=== PATIENT | male | born 1980 | race Caucasian/White ===

== ENCOUNTER 2018-10-20 23:22 | Emergency (ER) | payer OTHER ==
[~2018-10-20] VITALS: Ht 167.6 cm; Wt 110.7 kg
[2018-10-20] MEDS ORDERED: OMEPRAZOLE20 MG PO (23:40)
[2018-10-20] MEDS ORDERED: LISINOPRIL-HCT1 EAC1 PO (23:40)
--- NOTE | 2018-10-21 14:35 | EKG ---
[facility] [address] [facility] [place], [place] [address] Signed Sinus tachycardia Otherwise normal ECG No previous ECGs available Confirmed by LIZZIE DUNN MD ([id number]) on 10/21/2018 2:35:33 PM Electronically Signed By: LIZZIE DUNN MD 10/21/18 1435 PATIENT NAME: RADHA AMIN YADIRA Electrocardiogram DATE OF : 82 PHYSICIAN: LIZZIE DUNN MD REPORT #: [id number] REPORT IS CONFIDENTIAL AND NOT TO BE RELEASED WITHOUT AUTHORIZATION
== END 2018-10-21 02:33 | disposition home or self-care (01) ==
LOC: ED 23:22
DX: E86.0 Dehydration (principal); K21.9 Gastro-esophageal reflux disease without esophagitis; I10 Essential (primary) hypertension; Z90.49 Acquired absence of other specified parts of digestive tract; Z79.899 Other long term (current) drug therapy
CPT/HCPCS: 80053; 81001; 83690; 85025; 93005; 93010; 96361; 96374; 99284-25; J2405; J7030

== ENCOUNTER 2019-08-29 01:19 | Emergency (ER) | payer OTHER ==
[~2019-08-29] VITALS: Ht 162.6 cm; Wt 99.8 kg
--- OUTSIDE RECORDS SUMMARY | ~2019-08-29 | XMS | Clinical Summary ---
Demographics + + + | Address | [address] | | | [place] [address] | + + + | Home Phone | | + + + | Preferred Language | Unknown | + + + | Marital Status | Single | + + + | Scientology Affiliation | Unknown | + + + | Race | Unknown | + + + | Ethnic Group | Other Race | + + + Author + + + | Author | [facility] | + + + | Organization | [facility] | + + + | Address | Unknown | + + + | Phone | Unavailable | + + + Care Team Providers + +------+ + | Care Car Wash Manager Name | Role | Phone | + +------+ + PCP | Unavailable | + +------+ + Source Comments BESS is fully live on both [facility] Ambulatory and [facility] InPatient.[facility] Allergies Not on File Medications Not on file Active Problems Not on file Social History + +-------+ +--------+------+ | Tobacco [...] recent travel history available. | + + Last Filed Vital Signs Not on file Plan of Treatment Not on file Results Not on filefrom Last 3 Months Insurance + +--------+ +--------+ + +------+ | Payer | Benefi | Subscriber | Effect | Phone | Address | Type | | | t Plan | ID | myra | | | | | | / | | Dates | | | | | | Group | | | | | | + +--------+ +--------+ + +------+ | BLUE CROSS BLUE | HMA/RG | [id number] | 11/11/19 | [phone] | [address] | PPO | | SHIELD | A | x | 18-Pre | 8 | [id number] | | | | | | sent | | [place], | | | | | | | | [place] | | | | | | | | [address] | | + +--------+ +--------+ + +------+ + +--------+ +--------+ + + | Guarantor Name | Accoun | Relation to | Date | Phone | Billing Address | | | t Type | Patient | of | | | | | | | | | | + +--------+ +--------+ + + | Naveed Rmairez | Person | Self | [birth year] | [address] | | | vanessa/Pablo | | 1980 | [phone] | [place] [address] | | | sandy | | | 7 (Home) | | | | | | | [phone] | | | | | | | 7 (Work) | | + +--------+ +--------+ + +"
--- OUTSIDE RECORDS SUMMARY | ~2019-08-29 | XMS | Clinical Summary ---
Demographics + + + | Address | [place] [address] | | | [place] [address] | + + + | Preferred Language | Unknown | + + + | Marital Status | Unknown | + + + | Denominational Affiliation | 1077 | + + + | Race | Unknown | + + + | Ethnic Group | Unknown | + + + Author + + + | Author | [facility] | | | and [place] | + + + | Organization | [facility] | | | and [place] | + + + | Address | Unknown | + + + | Phone | Unavailable | + + + Support + + +---------+ + | Name | Relationship | Address | Phone | + + +---------+ + | Nelson Baig | ECON | Unknown | | | James | | | | + + +---------+ + Care Team Providers + +------+ + | Care Director Veterinary Name | Role | Phone | + +------+ + PCP | Unavailable | + +------+ + Allergies Not on File Medications Not on [...] Signs Not on file Plan of Treatment + + + + + | Health Maintenance | Due Date | Last Done | Comments | + + + + + | Vaccine: | | | | | Dtap/Tdap/Td (1 - | 0 | | | | Tdap) | | | | + + + + + | Vaccine: Influenza | | | | | (#1) | 9 | | | + + + + + Results Not on filefrom Last 3 Months"
--- OUTSIDE RECORDS SUMMARY | ~2019-08-29 | XMS | Encounter Summary ---
Demographics + + + | Address | [address] | | | [place] [address] | + + + | Home Phone | | + + + | Preferred Language | Unknown | + + + | Marital Status | Single | + + + | Shinto Affiliation | Unknown | + + + | Race | Unknown | + + + | Ethnic Group | Other Race | + + + Author + + + | Author | [facility] | + + + | Organization | [facility] | + + + | Address | Unknown | + + + | Phone | Unavailable | + + + Care Team Providers + +------+ + | Care Front Maker Name | Role | Phone | + +------+ + PCP | Unavailable | + +------+ + Encounter Details +--------+ + + + + | Date | Type | Department | Care Team | Description | +--------+ + + + + | 11/30/ | Lab | Dermatopathology | Otoniel Lyons V, | | | 2017 | Requisition | [address] | [place] | | | | | Mailcode: [id number] | Clinic Dermatology | | | | | [facility] | [address] | | | | | and Healing, | [place] | | | | | [facility] | [id number] | | | | | Floor [place], [place] | | | | | | [address] | | | | | | [phone] | | | +--------+ + + + [...] | + +--------+ + + + | DERM PATHOLOGY | Routin | 11/29/2017 | Neoplasm of | Results for this | | | e | | uncertain behavior | procedure are in the | | | | | of skin | results section. | + +--------+ + + + documented in this encounter Results DERM PATHOLOGY (11/29/2017) + + + + + + | Component | Value | Ref Range | Performed | Pathologist | | | | | At | Signature | + + + + + + | Clinical | 9 x 8 mm erythematous | | [facility] | | | History | telangiectatic centrally | | DERMATOPATH | | | | ulcerated papule; r/o | | OLOGY | | | | BCC. | | | | + + + + + + | Final | BASAL CELL CARCINOMA, | | [facility] | Electronically | | Pathologic | NODULAR.NOTE: The basal | | DERMATOPATH | signed by Javier | | Diagnosis | cell carcinoma extends | | OLOGY | P MD Myles on | | | to the specimen | | | 12/01/2017 at | | | base.KPW: dm12/01/17 | | | 6:02 PM | | |KPW: dm | | | | | |12/01/17 | | | | + + + + + + | Gross | Received in formalin is | | [facility] | | | Description | a specimen labeled with | | DERMATOPATH | | | | the patient's name:A: | | OLOGY | | | | Specimen is labeled "R | | | | | | nasal tip" and consists | | | | | | of an irregular shave of | | | | | | crusted scaly papular | | | | | | qcwwp-qzjwp-odqgw skin, | | | | | | 10 x 8 x 2 mm. The | | | | | | surgical margin is inked | | | | | | blue; the tissue is | | | | | | trisected, and entirely | | | | | | submitted in cassette | | | | | | A1. | | | | + + + + + + | Microscopic | There are aggregates of | | [facility] | | | | cells with | | DERMATOPATH | | | Description | hyperchromatic nuclei, | | OLOGY | | | | scant cytoplasm and | | | | | | palisading of the | | | | | | peripheral nuclei. | | | | + + + + + + + + | Specimen | + + | Biopsy | + + + + + + + | Performing | Address | City/State/Zipcode | Phone Number | | Organization | | | | + + + + + | [facility] | Mailcode CH5D, [address] | [place] [address] | | | DERMATOPATHOLOGY | [address] | | | + + + + + documented in this encounter Visit Diagnoses + + | Diagnosis | + + | Neoplasm of uncertain behavior of skin | + + documented in this encounter
--- OUTSIDE RECORDS SUMMARY | ~2019-08-29 | XMS | Encounter Summary ---
Demographics + + + | Address | [address] [place] [address] | | | [place] [address] | + + + | Preferred Language | Unknown | + + + | Marital Status | Unknown | + + + | Worship Affiliation | 1077 | + + + | Race | Unknown | + + + | Ethnic Group | Unknown | + + + Author + + + | Author | [facility] | | | and [place] | + + + | Organization | [facility] | | | and [place] [...] Team Providers + +------+ + | Care High School Special Education Teacher Name | Role | Phone | + +------+ + PCP | Unavailable | + +------+ + Encounter Details +--------+ + + + + | Date | Type | Department | Care Team | Description | +--------+ + + + + | 11/24/ | [facility] | [facility] | Sam Enciso | | | 2006 | Encounter | MED CTR SLEEP | MD Jorgito [address] [place] [address] | | | | | [address] [place] | [facility] | | | | | [place] | [place] [address] | | | | | [address] | [phone] | | | | | [phone] | | | +--------+ + + + [...]
--- OUTSIDE RECORDS SUMMARY | ~2019-08-29 | XMS | Encounter Summary ---
Demographics + + + | Address | [place] [address] | | | [place] [address] | + + + | Preferred Language | Unknown | + + + | Marital Status | Unknown | + + + | Pentecostal Affiliation | 1077 | + + + | Race | Unknown | + + + | Ethnic Group | Unknown | + + + Author + + + | Author | [facility] | | | and [place] | + + + | Organization | [facility] | | | and [place] | [...] Team Providers + +------+ + | Care Librarian Specialist Name | Role | Phone | + +------+ + PCP | Unavailable | + +------+ + Encounter Details +--------+ + + + + | Date | Type | Department | Care Team | Description | +--------+ + + + + | 12/14/ | Hospital | [facility] | Sam Enciso | | | 1999 | Encounter | MED CTR SLEEP | MD Jorgito [address] [place] [address] | | | | | [address] [place] | [place] | | | | | [place] | [place] [address] | | | | | [address] | [phone] | | | | | [phone] | | | +--------+ + + + [...]
--- OUTSIDE RECORDS SUMMARY | ~2019-08-29 | XMS | Encounter Summary ---
Demographics + + + | Address | [place] [address] | | | [place] [address] | + + + | Preferred Language | Unknown | + + + | Marital Status | Unknown | + + + | Uatsdin Affiliation | 1077 | + + + | Race | Unknown | + + + | Ethnic Group | Unknown | + + + Author + + + | Author | [facility] | | | and [place] | + + + | Organization | [facility] | | | and [place] | [...] Team Providers + +------+ + | Care Tonsorial Artist Name | Role | Phone | + +------+ + PCP | Unavailable | + +------+ + Encounter Details +--------+ + + + + | Date | Type | Department | Care Team | Description | +--------+ + + + + | 12/14/ | Hospital | [facility] | Sam Enciso | | | 1999 | Encounter | MED CTR SLEEP | MD Jorgito [address] [place] [address] | | | | | [address] [place] | [place] [facility] | | | | | [place] | [place] [address] | | | | | [address] | [phone] | | | | | [phone] | | | +--------+ + + + [...]
--- OUTSIDE RECORDS SUMMARY | ~2019-08-29 | XMS | Encounter Summary ---
Demographics + + + | Address | [address] | | | [place] [address] | + + + | Home Phone | | + + + | Preferred Language | Unknown | + + + | Marital Status | Single | + + + | Yazdanism Affiliation | Unknown | + + + | Race | Unknown | + + + | Ethnic Group | Other Race | + + + Author + + + | Author | [facility] | + + + | Organization | [facility] | + + + | Address | Unknown | + + + | Phone | Unavailable | + + + Care Team Providers + +------+ + | Care Contracts Director Name | Role | Phone | + [...] Clinic Dermatology | | | | | [facility] | [address] | | | | | and Healing, | [place] | | | | | [facility] | [id number] | | | | | Floor [place], [place] | | | | | | [address] | | | | | | [phone] | | | +--------+ + + + [...] papular | | | | | | nxgws-ogdyc-gpziy skin, | | | | | | [...] [facility] | Mailcode CH5D, [address] | [place] [address] | | | DERMATOPATHOLOGY | [address] | | | + + + + + documented in this encounter Visit Diagnoses + + | Diagnosis | + + | Neoplasm of uncertain behavior of skin | + + documented in this encounter
--- OUTSIDE RECORDS SUMMARY | ~2019-08-29 | XMS | Clinical Summary ---
Demographics + + + | Address | [address] | | | [place] [address] | + + + | Home Phone | | + + + | Preferred Language | Unknown | + + + | Marital Status | Single | + + + | Jain Affiliation | Unknown | + + + | Race | Unknown | + + + | Ethnic Group | Other Race | + + + Author + + + | Author | [facility] | + + + | Organization | [facility] | + + + | Address | Unknown | + + + | Phone | Unavailable | + + + Care Team Providers + +------+ + | Care Computer Programming Manager Name | Role | Phone | + +------+ + PCP | Unavailable | + +------+ + Source Comments BESS is fully live on both [facility] Ambulatory and [facility] InPatient.[facility] Allergies Not on File Medications Not [...] | HMA/RG | [phone] | 11/11/19 | [phone] | [address] | PPO | | SHIELD | A | x | 18-Pre | 8 | [phone] | | | | | | sent | | [place], | | | | | | | | [place] | | | | | | | | [address] | | + +--------+ +--------+ + +------+ [...] | | vanessa/Pablo | | 1980 | [phone] | [place] [address] | | | sandy | | | 7 (Home) | | | | | | | [phone] | | | | | | | 7 (Work) | | + +--------+ +--------+ + +"
--- OUTSIDE RECORDS SUMMARY | ~2019-08-29 | XMS | Encounter Summary ---
Demographics + + + | Address | [place] [address] | | | [place] [address] | + + + | Preferred Language | Unknown | + + + | Marital Status | Unknown | + + + | Zoroastrianism Affiliation | 1077 | + + + | Race | Unknown | + + + | Ethnic Group | Unknown | + + + Author + + + | Author | [facility] | | | and [place] | + + + | Organization | [facility] | | | and [place] [...] Team Providers + +------+ + | Care Stripper Black And White Name | Role | Phone | + +------+ + PCP | Unavailable | + +------+ + Encounter Details +--------+ + + + + | Date | Type | Department | Care Team | Description | +--------+ + + + + | [facility]24/ [facility] | Sam Enciso | | | 2006 | Encounter | MED CTR SLEEP | MD Jorgito [address] [place] [address] | | | | | [address] [place] | [facility] | | | | | [place] | [place] [address] | | | | | [address] | [phone] | | | | | [phone] | | | +--------+ + + + [...]
--- OUTSIDE RECORDS SUMMARY | ~2019-08-29 | XMS | Clinical Summary ---
Demographics + + + | Address | [place] [address] | | | [place] [address] | + + + | Preferred Language | Unknown | + + + | Marital Status | Unknown | + + + | Jehovah'S Witness Affiliation | 1077 | + + + | Race | Unknown | + + + | Ethnic Group | Unknown | + + + Author + + + | Author | [facility] | | | and [place] | + + + | Organization | [facility] | | | and [place] [...] Team Providers + +------+ + | Care Roll Threader Operator Name | Role | Phone | + [...]
[~2019-08-29 01:19] MED LIST: CENTRUM MEN'S1 EACH PO; FISH OIL 1,0001 EAC3 PO; IRON325 M1 PO; LISINOPRIL-HCT1 EAC1 PO; OMEPRAZOLE20 MG PO; PANTOPRAZOLE SO40 MG PO; VITAMIN C500 M1 PO; VITAMIN D2000 UNIT PO; XANAX0.5 MG PO
[2019-08-29] MEDS ORDERED: OMEPRAZOLE20 MG PO (01:32)
[2019-08-29] MEDS ORDERED: BUSPIRONE HCL10 MG PO (01:32)
[2019-08-29] MEDS ORDERED: ONDANSETRON ODT4 MG PO (01:32)
== END 2019-08-29 05:42 ==
LOC: ED 01:19
DX: R20.2 Paresthesia of skin (principal); I10 Essential (primary) hypertension; K21.9 Gastro-esophageal reflux disease without esophagitis; Z91.040 Latex allergy status; Z88.8 Allergy status to other drugs, medicaments and biological substances; Z79.899 Other long term (current) drug therapy
CPT/HCPCS: 80053; 81001; 83690; 84484; 85025; 99284

== ENCOUNTER 2020-01-23 13:24 | Emergency (ER) | payer OTHER ==
[~2020-01-23] VITALS: Ht 162.6 cm; Wt 145.2 kg
[~2020-01-23 13:24] MED LIST changes: +BUSPIRONE HCL10 MG PO; +ONDANSETRON ODT4 MG PO
--- OUTSIDE RECORDS SUMMARY | 2020-01-23 13:28 | XMS ---
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 Guidelines Source: [facility] Guidelines Date: 09/01/2019 Care Coordination: Receives mental health services with [facility].\T\nbsp; Please contact [facility] for any mental health concerns.\T\nbsp; [place]: [phone]\ T\nbsp; [place]: [phone]. E.D. VISIT COUNT (12 MO.) 2 [facility] TOTAL 2 NOTE: Visits indicate total known visits. ED/UCC VISIT TRACKING (12 MO.) 01/23/2020 13:25 [facility] [place] [place] TYPE: Emergency COMPLAINT: - CHEST PRESSURE 08/29/2019 01:20 [facility] [place] [place] TYPE: Emergency COMPLAINT: - PANIC ATTACK/BLOOD PRESSURE CONCERN DIAGNOSES: - Latex allergy status - Other prison (current) drug therapy - Paresthesia of skin - Gastro-esophageal reflux disease without esophagitis - Allergy status to other drugs, medicaments and biological sub - Essential (primary) hypertension INPATIENT VISIT TRACKING (12 MO.) No inpatient visits to display in this time frame [email or web address]
[2020-01-23] MEDS ORDERED: DOXEPIN HCL10 MG PO (13:33)
--- NOTE | 2020-01-24 12:45 | EKG ---
[facility] [address] [facility] [place] [address] Signed Normal sinus rhythm Normal ECG When compared with ECG of 21-OCT-2018 00:18, No significant change was found Confirmed by VENUS AJ MD ([id number]) on 01/24/2020 12:45:05 PM Electronically Signed By: VENUS AJ MD 01/24/20 1245 PATIENT NAME: RADHA AMIN YADIRA Electrocardiogram DATE OF : 82 PHYSICIAN: VENUS AJ MD REPORT #: [id number] REPORT IS CONFIDENTIAL AND NOT TO BE RELEASED WITHOUT AUTHORIZATION
== END 2020-01-23 14:58 | disposition home or self-care (01) ==
LOC: ED 13:24
DX: F41.9 Anxiety disorder, unspecified (principal); I10 Essential (primary) hypertension; R07.89 Other chest pain; K21.9 Gastro-esophageal reflux disease without esophagitis; Z91.040 Latex allergy status; Z79.899 Other long term (current) drug therapy
CPT/HCPCS: 71045; 80053; 83735; 84484; 85025; 93005; 93010; 99285-25

== ENCOUNTER 2020-02-08 15:44 | Emergency (ER) | payer OTHER ==
[~2020-02-08] VITALS: Ht 162.6 cm; Wt 145.2 kg
--- OUTSIDE RECORDS SUMMARY | ~2020-02-08 | XMS | Encounter Summary ---
Demographics + + + | Address | [address] | | | [place] [address] | + + + | Home Phone | | + + + | Preferred Language | Unknown | + + + | Marital Status | Single | + + + | Sabianist Affiliation | 1077 | + + + | Race | Unknown | + + + | Ethnic Group | Unknown | + + + Author + + + | Author | [facility] | | | and [place] | + + + | Organization | [facility] | | | and [place] | + + + | Address | Unknown | + + + | Phone | Unavailable | + + + Support + + +---------+ + | Name | Relationship | Address | Phone | + + +---------+ + | RADHA Ramirez | ECON | Unknown | | + + +---------+ + Care Team Providers + +------+ + | Care Machine Tool Designer Name | Role | Phone | + +------+ + PCP | Unavailable | + +------+ + Encounter Details +--------+ + + + + | Date | Type | Department | Care Team | Description | +--------+ + + + + | 12/14/ | Hospital | [facility] | Sam Enciso | | | 1999 | Encounter | MED CTR SLEEP | MD Jorgito [address] | | | | | CENTER [address] | [facility] | | | | | [place] | [place] [address] | | | | | [address] | [phone] | | | | | [phone] | | | +--------+ + + + + Social History + +-------+ +--------+------+ | Tobacco Use | Types | Packs/Day | Years | Date | | | | | Used | | + +-------+ +--------+------+ | Never Assessed | | | | | + +-------+ +--------+------+ + + + | Sex Assigned at | Date Recorded | | | | + + + | Not on file | | + + + + + + + | Job Start Date | Occupation | Industry | + + + + | Not on file | Not on file | Not on file | + + + + + + + + | Travel History | Travel Start | Travel End | + + + + + + | No recent travel history available. | + + documented as of this encounter Plan of Treatment Not on filedocumented as of this encounter Visit Diagnoses Not on filedocumented in this encounter"
--- OUTSIDE RECORDS SUMMARY | ~2020-02-08 | XMS | Encounter Summary ---
Demographics + + + | Address | [address] | | | [place] [address] | + + + | Home Phone | | + + + | Preferred Language | Unknown | + + + | Marital Status | Single | + + + | Religion Affiliation | 1077 | + + + | Race | Unknown | + + + | Ethnic Group | Unknown | + + + Author + + + | Author | [facility] | | | and [place] | + + + | Organization | [facility] | | | and [place] [...] Team Providers + +------+ + | Care Deputy Jailer Name | Role | Phone | + +------+ + | Kris Barone PCP | | + +------+ + Reason for Visit Auth/Cert +--------+--------+ + + + + | Status | Reason | Specialty | Diagnoses / | Referred By | Referred To | | | | | Procedures | Contact | Contact | +--------+--------+ + + + + | | | | Diagnoses | | [place] | | | | | | | [place], | | | | | Gastroesopha | | [address] | | | | | geal reflux | | [address] | | | | | disease, | | [place], | | | | | esophagitis | | [place] [address] | | | | | presence not | | Phone: | | | | | specified | | [phone] | | | | | 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 | | [phone] | | | | | (HCC) | | | | | | | Chronic | | | | | | | abdominal | | | | | | | pain Failed | | | | | | | conscious | | | | | | | sedation | | | | | | | during | | | | | | | procedure, | | | | | | | subsequent | | | | | | | encounter | | | | | | | Obstructive | | | | | | | sleep apnea | | | | | | | | | | | | | | 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 | | | | | | | without | | | | | | | status | | | | | | | epilepticus, | | | | | | | unspecified | | | | | | | epilepsy | | | | | | | type (HCC) | | | | | | | Procedures | | | | | | | [place] | | | | | | | ESOPHAGOGAST | | | | | | | RODUODENOSCO | | | | | | | PY TRANSORAL | | | | | | | DIAGNOSTIC | | | | | | | [place] EGD | | | | | | | TRANSORAL | | | | | | | BIOPSY | | | | | | | SINGLE/MULTI | | | | | | | PLE [place] | | | | | | | COLONOSCOPY | | | | | | | FLX DX | | | | | | | W/COLLJ SPEC | | | | | | | WHEN PFRMD | | | | | | | [place] | | | | | | | COLONOSCOPY | | | | | | | W/BIOPSY | | | | | | | SINGLE/MULTI | | | | | | | PLE [place] | | | | | | | COLSC FLX | | | | | | | W/RMVL OF | | | | | | | TUMOR POLYP | | | | | | | LESION SNARE | | | | | | | TQ [place] | | | | | | | ANESTHESIA | | | | | | | COMBINED | | | | | | | UPPER&LOWER | | | | | | | GI | | | | | | | ENDOSCOPIC | | | | | | | PX EGD | | | | | | | COLONOSCOPY | | | +--------+--------+ + + + + Encounter Details +--------+ + + + + | Date | Type | Department | Care Team | Description | +--------+ + + + + | 11/28/ | Anesthesia | [facility] | Blaine Barone | | | 2020 | Event | [facility] | MD [address] | | | | | [address] | [address] | | | | | [place] | [place] [address] | | | | | [address] | [phone] | | | | | [phone] | | | +--------+ + + + + Anesthesia Record + + + + + | Procedure Name | Responsible | Anesthesia Start | Anesthesia Stop Time | | | Anesthesiologist | Time | | + + + + + | ANABEL (N/A Kj) | Blaine Talamantes | 11/28/19 0953 | 11/28/19 1034 | | | MD Abisai | | | + + + + + +----+---+ + + | Da | T | Event | Comment | | te | i | | | | | m | | | | | e | | | +----+---+ + + | 02 | 0 | | | | /1 | 9 | | | | 8/ | 5 | | | | 20 | 3 | | | | 20 | | | | +----+---+ + + | | 0 | An Start | Reassessment prior to anesthesia induction/procedure. | | | 9 | | | | | 5 | | | | | 3 | | | +----+---+ + + | | 0 | An Checkout | Pre-use anesthesia machine/equipment checkout. | | | 9 | | | | | 5 | | | | | 4 | | | +----+---+ + + | | 0 | An Start | | | | 9 | Data | | | | 5 | | | | | 4 | | | +----+---+ + + | | 0 | AN | Per surgeon request | | | 9 | Antibiotic | | | | 5 | declined | | | | 5 | | | +----+---+ + + | | 0 | Pre-Procedu | | | | 9 | ral Timeout | | | | 5 | Completed | | | | 5 | | | +----+---+ + + | | 0 | Preoxygenat | | | | 9 | ed | | | | 5 | | | | | 7 | | | +----+---+ + + | | 0 | First | | | | 9 | Inc/Proc St | | | | 5 | | | | | 9 | | | +----+---+ + + | | 0 | An | | | | 9 | Induction | | | | 5 | | | | | 9 | | | +----+---+ + + | | 1 | Breathing | | | | 0 | Spontaneous | | | | 2 | ly | | | | 6 | | | +----+---+ + + | | 1 | an stop | | | | 0 | data | | | | 3 | | | | | 0 | | | +----+---+ + + | | 1 | An Stop | Patient handed off to recovery nurse. | | | 3 | | | | | 4 | | | +----+---+ + + +------+ | Meds | +------+ + + + | Name | Total | + + + | propofol | 80 mg | + + + | propofol | 378 mg | + + + | lidocaine 2% | 60 mg | + + + | lactated ringers (LR) infusion | 1,000 mL | + + + + + | No agents on file. | + + + + | No blood administrations on file. | + + +--------+ + + + | Type | Details | Placement | Removal | +--------+ + + + | Periph | 11/28/19; 826; Right; Forearm; | 11/28/19826 by | 11/28/191107 by | | eral | [id number] catheter system; | Ava Cole RN | Randi Reyes, | | IV | 20 gauge; distraction, | | RN | | | intradermal injection; no longer | | | | | indicated, removed per | | | | | policy/procedure, catheter/device | | | | | intact; 11/28/19; 1108 | | | +--------+ + + + documented in this encounter Social History + +-------+ +--------+------+ | Tobacco Use | Types | Packs/Day | Years | Date | | | | | Used | | + +-------+ +--------+------+ | Never Smoker | | | | | + +-------+ +--------+------+ + +---+---+---+ | Smokeless Tobacco: | | | | | Never Used | | | | + +---+---+---+ + + +---------+ + | Alcohol Use | Drinks/Week | oz/Week | Comments | + + +---------+ + | Never | | | | + + +---------+ + + + + + | Alcohol Habits | Answer | Date Recorded | + + + + | How often do you have a drink containing | Never | 10/10/2019 | | alcohol? | | | + + + + | How many drinks containing alcohol do you | Not asked | | | have on a typical day when you are | | | | drinking? | | | + + + + | How often do you have six or more drinks on | Not asked | | | one occasion? | | | + + + + + + + | Sex Assigned at [...] Visit Diagnoses Not on filedocumented in this encounter Administered Medications + +---------+ +------+------+------+ | Medication Order | MAR | Action | Dose | Rate | Site | | | Action | Date | | | | + +---------+ +------+------+------+ | lactated ringers (LR) infusion | New Bag | 11/28/19 | | | | | at 100 mL/hr, Intravenous, | | 20 10:29 | | | | | CONTINUOUS, Starting 11/28/19 | | AM PST | | | | | at 0830, Pre-op | | | | | | + +---------+ +------+------+------+ + + +--------+-------+---+ | Continued by Anesthesia | 11/28/19 | | | | | | 20 9:53 | | | | | | AM PST | | | | + + +--------+-------+---+ | New Bag | 11/28/19 | 1,000 | 100 | | | | 20 8:28 | mLs | mL/hr | | | | AM PST | | | | + + +--------+-------+---+ +---+---+ | | | +---+---+ + +-------+ +-------+---+---+ | lidocaine (PF) 2% injection | Given | 11/28/19 | 60 mg | | | | Intravenous, PRN, Starting Tue | | 20 9:59 | | | | | 11/28/19 at 0959, Anesthesia | | AM PST | | | | | Intra-op | | | | | | + +-------+ +-------+---+---+ +---+---+ | | | +---+---+ + +---------+ + +-------+---+ | propofol (DIPRIVAN) injection | New Bag | 11/28/19 | 180 | 108 | | | Intravenous, CONTINUOUS PRN, | | 20 9:59 | mcg/kg/m | mL/hr | | | Starting 11/28/19 at 0959, | | AM PST | in | | | | Anesthesia Intra-op | | | | | | + +---------+ + +-------+---+ +---+---+ | | | +---+---+ + +-------+ +-------+---+---+ | propofol (DIPRIVAN) injection | Given | 11/28/19 | 80 mg | | | | Intravenous, PRN, Starting Tue | | 20 9:59 | | | | | 11/28/19 at 0959, Anesthesia | | AM PST | | | | | Intra-op | | | | | | + +-------+ +-------+---+---+ +---+---+ | | | +---+---+ documented in this encounter"
--- OUTSIDE RECORDS SUMMARY | ~2020-02-08 | XMS | Encounter Summary ---
Demographics + + + | Address | [address] | | | [place] [address] | + + + | Home Phone | | + + + | Preferred Language | Unknown | + + + | Marital Status | Single | + + + | Evangelical Affiliation | 1077 | + + + | Race | Unknown | + + + | Ethnic Group | Unknown | + + + Author + + + | Author | [facility] | | | and [place]ol[place] | + + + | Organization | [facility] | | | and [...] Team Providers + +------+ + | Care Production Support Engineer Name | Role | Phone | + +------+ + | Kris Barone | PCP | | + +------+ + Reason for Visit +--------+ + | Reason | Comments | +--------+ + | Other | | +--------+ + Encounter Details +--------+ + + + + | Date | Type | Department | Care Team | Description | +--------+ + + + + | 11/08/ | Telephone | [facility] [place] | [place], | Other | | 2020 | | GASTROENTEROLOGY | [facility] [address] | | | | | [address] [place] | [place] | | | | | [address] [place], [place] | [place], [place] | | | | | [address] | [address] | | | | | [phone] | | | +--------+ + + + [...]
--- OUTSIDE RECORDS SUMMARY | ~2020-02-08 | XMS | Encounter Summary ---
Demographics + + + | Address | [address] | | | [place] [address] | + + + | Home Phone | | + + + | Preferred Language | Unknown | + + + | Marital Status | Single | + + + | Adventist Affiliation | 1077 | + + + | Race | Unknown | + + + | Ethnic Group | Unknown | + + + Author + + + | Author | [facility] | | | and Amolana | + + + | Organization | [facility] | | | and Amolana [...] Team Providers + +------+ + | Care Tearoom Host/Hostess Name | Role | Phone | + [...] | | | esophagitis | | [place] [address] | | | | | presence not | | Phone: | | | | | specified | | [phone] | | | | | 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 | | [phone] | | | | | (HCC) | [...] | | | | | | | [place] | | | | | | | ESOPHAGOGAST | | | | | | | RODUODENOSCO | | | | | | | PY TRANSORAL | | | | | | | DIAGNOSTIC | | | | | | | [place] EGD | | | | | | | TRANSORAL | | | | | | | BIOPSY | | | | | | | SINGLE/MULTI | | | | | | | PLE [place] | | | | | | | COLONOSCOPY | | | | | | | FLX DX | | | | | | | W/COLLJ SPEC | | | | | | | WHEN PFRMD | | | | | | | [place] | | | | | | | COLONOSCOPY | | | | | | | W/BIOPSY | | | | | | | SINGLE/MULTI | | | | | | | PLE [place] | | | | | | | COLSC FLX | | | | | | | W/RMVL OF | | | | | | | TUMOR POLYP | | | | | | | LESION SNARE | | | | | | | TQ [place] | | | | | | | [...] +--------+--------+ + + + + Encounter Details +--------+---------+ + + + | Date | Type | Department | Care Team | Description | +--------+---------+ + + + | 11/28/ | Surgery | [facility] | [facility] | EGD | | 2019 | | [facility] | MD D[address] | | | | [address] | [address] | | | | | [place] | [place] [address] | | | | | [id number] | [phone] | | | | | [phone] | | | +--------+---------+ + + + Social History + +-------+ [...] + + documented as of this encounter Last Filed Vital Signs + + + + + | Vital Sign | Reading | Time Taken | Comments | + + + + + | Blood Pressure | 131/93 | 11/28/2019 11:00 AM | | | | | PST | | + + + + + | Pulse | 92 | 11/28/2019 11:00 AM | | | | | PST | | + + + + + | Temperature | 36.6 C (97.9 F) | 11/28/2019 7:48 AM | | | | | PST | | + + + + + | Respiratory Rate | 15 | 11/28/2019 11:00 AM | | | | | PST | | + + + + + | Oxygen Saturation | 99% | 11/28/2019 11:00 AM | | | | | PST | | + + + + + | Inhaled Oxygen | - | - | | | Concentration | | | | + + + + + | Weight | 100 kg (220 lb 7.4 | 11/28/2019 7:48 AM | | | | oz) | PST | | + + + + + | Height | 162.6 cm (5' 4") | 11/28/2019 7:48 AM | | | | | PST | | + + + + + | Body Mass Index | 37.84 | 11/28/2019 7:48 AM | | | | | PST | | + + + + + documented in this encounter Discharge Instructions Instructions Randi Reyes RN - 11/28/2019 Recovery After Procedural Sedation (Adult) You have been given medicine by vein to make you sleep during your procedure. This may have included both a pain medicine and sleeping medicine. Most of the effects have worn off. But you may still have some drowsiness for the next 6 to 8 hours. Home care Follow these guidelines when you get home: For the next 8 hours, you should be watched by a responsible adult. This person should m baltazar sure your condition is not getting worse. Don't drink any alcoholfor the next [address], operate dangerous machinery,make important business or personal decisions , or sign legal documentsduring the next 24 hours. Note: Your healthcare provider may tell you not to take any medicine by mouth for pain or s leep in the next 4 hours. These medicines may react with the medicines you were given in the hospital. This could cause a much stronger response than usual. Follow-up care Follow up with your healthcare provider if you are not alert and back to your usual level o f activity within 12 hours. When to seek medical advice Call your healthcare provider right away if any of these occur: Drowsiness gets worse Weakness or dizziness gets worse Repeated vomiting You can't be awakened Date Last Reviewed: 07/28/201619990577-0931 [employer]. [address] [place] [address]. All righ ts reserved. This information is not intended as a substitute for professional medical care. Always follow your healthcare professional's instructions. documented in this encounter Medications at Time of Discharge + + + +---------+ + + | Medication | Sig | Dispensed | Refills | Start | End Date | | | | | | Date | | + + + +---------+ + + | ALPRAZolam (XANAX) | Take 0.5 mg by mouth | | 0 | | | | 0.5 mg tablet | 3 times daily as | | | | | | | needed for Anxiety. | | | | | + + + +---------+ + + | amitriptyline | TAKE 1 TABLET BY | | 0 | 11/01/19 | | | (ELAVIL) 10 mg | MOUTH EVERY DAY AT | | | 20 | | | tablet | BEDTIME | | | | | + + + +---------+ + + | cholecalciferol | Take 50 mcg by mouth | | 0 | | | | (EQL VITAMIN D3) 50 | Daily. | | | | | | mcg (2,000 units) | | | | | | | capsule | | | | | | + + + +---------+ + + | Iron-Vitamin C | Take 1 tablet by | | 0 | | | | (VITRON-C) 65-125 MG | mouth Daily. | | | | | | TABS | | | | | | + + + +---------+ + + | | Take 1 tablet by | | 0 | | | | lisinopril-hydrochlo | mouth Daily. | | | | | | rothiazide | | | | | | | (PRINZIDZahraa,ZESTORETIC | | | | | | | ) 20-25 MG per | | | | | | | tablet | | | | | | + + + +---------+ + + | Multiple | Take 1 tablet by | | 0 | | | | Vitamins-Minerals | mouth Daily. | | | | | | (CENTRUM MEN) TABS | | | | | | + + + +---------+ + + | omeprazole | TAKE 1 CAPSULE BY | | 0 | 03/13/20 | | | (PRILOSEC) 20 mg | MOUTH TWICE DAILY | | | 19 | | | TBEC | | | | | | + + + +---------+ + + | ondansetron | Take 4 mg by mouth | | 0 | | | | (ZOFRAN ODT) 4 mg | every 8 hours as | | | | | | disintegrating | needed for Nausea. | | | | | | tablet | | | | | | + + + +---------+ + + | psyllium (KONSYL) | Take 1 packet by | | 0 | | | | 28.3 % PACK | mouth Daily. | | | | | + + + +---------+ + + documented as of this encounter Plan of Treatment Not on filedocumented as of this encounter Procedures + +--------+ + + + | Procedure Name | Priori | Date/Time | Associated Diagnosis | Comments | | | ty | | | | + +--------+ + + + | COLONOSCOPY | | 11/28/2019 | Gastroesophageal | | | | | 9:55 AM | reflux disease, | | | | | PST | esophagitis presence | | | | | | not specified | | | | | | Sedative dependence | | | | | | ([facility]) Chronic | | | | | | abdominal pain | | | | | | Failed conscious | | | | | | sedation during | | | | | | procedure, | | | | | | subsequent encounter | | | | | | Obstructive sleep | | | | | | apnea | | | | | | Nonintractable | | | | | | epilepsy without | | | | | | status epilepticus, | | | | | | unspecified epilepsy | | | | | | type ([facility]) | | + +--------+ + + + | EGD | | 11/28/2019 | Gastroesophageal | | | | | 9:55 AM | reflux disease, | | | | | PST | esophagitis presence | | | | | | not specified | | | | | | Sedative dependence | | | | | | ([facility]) Chronic | | | | | | abdominal pain | | | | | | Failed conscious | | | | | | sedation during | | | | | | procedure, | | | | | | subsequent encounter | | | | | | Obstructive sleep | | | | | | apnea | | | | | | Nonintractable | | | | | | epilepsy without | | | | | | status epilepticus, | | | | | | unspecified epilepsy | | | | | | type (HCC) | | + +--------+ + + + | *TERMED* [place] UPPER GI | Routin | 11/28/2019 | | Results for this | | ENDOSCOPY,EXAM | e | 9:48 AM | | procedure are in the | | | | PST | | results section. | + +--------+ + + + | [place] COLONOSCOPY FLX | Routin | 11/28/2019 | | Results for this | | DX W/COLLJ SPEC WHEN | e | 9:47 AM | | procedure are in the | | PFRMD | | PST | | results section. | + +--------+ + + + | ECG 12 LEAD | STAT | 11/28/2019 | | Results for this | | | | 8:29 AM | | procedure are in the | | | | PST | | results section. | + +--------+ + + + | SURGICAL PATHOLOGY | Routin | 11/28/2019 | | Results for this | | EXAM | e | 12:00 AM | | procedure are in the | | | | PST | | results section. | + +--------+ + + + documented in this encounter Results EGD (11/28/2019 9:48 AM PST) + + | Specimen | + + | | + + + + ----+ | Narrative | Performed At | + + ----+ | [facility] | [facility] | | [facility] CenterstroenterologyPatient Name: Naveed Ramirez | ADOLFO | | NelsonProcedure Date: 11/28/2019 9:48 AMMRN: [id number] | | | Number: [id number] of : 1980Note Status: | | | FinalizedAttending MD: AQUILES RAGLAND , [facility]ERYrocedure Type: | | | Upper GI endoscopyIndications: Epigastric | | | abdominal pain, Abdominal bloatingReferring MD: | | | Kris Barone MD (Referring MD), Sowmya | | | RAYNE Carter (Referring )Medicines: | | | Monitored Anesthesia CareComplications: No | | | immediate complications.Procedure: Pre-Anesthesia Assessment: | | | - Prior to the procedure, a History and Physical was performed, | | | and patient medications and allergies were reviewed. The | | | patient is competent. The risks and benefits of the procedure | | | and the sedation options and risks were discussed with the | | | patient. All questions were answered and informed consent was | | | obtained. Patient identification and proposed procedure were | | | verified by the physician, the nurse and the anesthesiologist | | | in the pre-procedure area in the procedure room. Mental Status | | | Examination: alert and oriented. Airway Examination: normal | | | oropharyngeal airway and neck mobility. Respiratory Examination: clear | | | to auscultation. CV Examination: normal. Prophylactic | | | Antibiotics: The patient does not require prophylactic | | | antibiotics. Prior Anticoagulants: The patient has taken no | | | previous anticoagulant or antiplatelet agents. ASA Grade | | | Assessment: III - A patient with severe systemic disease. After | | | reviewing the risks and benefits, the patient was deemed in | | | satisfactory condition to undergo the procedure. The anesthesia plan | | | was to use monitored anesthesia care (MAC). Immediately prior | | | to administration of medications, the patient was re-assessed | | | for adequacy to receive sedatives. The heart rate, respiratory | | | rate, oxygen saturations, blood pressure, adequacy of pulmonary | | | ventilation, and response to care were monitored throughout | | | the procedure. The physical status of the patient was | | | re-assessed after the procedure. After obtaining informed | | | consent, the endoscope was passed under direct vision. | | | Throughout the procedure, the patient's blood pressure, pulse, | | | and oxygen saturations were monitored continuously. The Endoscope was | | | introduced through the mouth, and advanced to the second part | | | of duodenum. The upper GI endoscopy was accomplished without | | | difficulty. The patient tolerated the procedure well.Estimated | | | Blood Loss: Estimated blood loss: none.Findings: The upper | | | third of the esophagus and middle third of the esophagus were | | | normal. Three tongues of salmon-colored mucosa were present from | | | 35 to 36 cm. No other visible abnormalities were present. The | | | maximum longitudinal extent of these esophageal mucosal changes | | | was 1 cm in length. Biopsies were taken with a cold forceps | | | for histology. Z line at 35cm, top of folds at 36cm, pinch at | | | 38cm. The entire examined stomach was normal. Biopsies were | | | taken with a cold forceps for histology. A 2 cm hiatal | | | hernia was present. Retroflexion in the stomach confirmed the | | | above findings. The duodenal bulb and second portion of the | | | duodenum were normal. Biopsies were taken with a cold forceps | | | for histology.Impression: - Normal upper third of esophagus and | | | middle third of esophagus. 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 Biopsied. - Normal | | | stomach. Biopsied. - 2 cm hiatal hernia. - Normal | | | duodenal bulb and second portion of the duodenum. | | | Biopsied.Recommendation: - Await pathology results. - | | | Resume previous diet. - Follow an antireflux regimen. - | | | Repeat upper endoscopy in 3 years for surveillance based on pathology | | | results. - Return to GI office as previously | | | scheduled.AQUILES RAGLAND MD11/28/2019 10:36:28 AMThis report has | | | been signed electronically.Note Initiated On: 11/28/2019 9:48 AMNumber | | | of Addenda: 0 [facility] | | | - Normal duodenal bulb and second portion of the duodenum. Biopsied. | | |Recommendation: | | | - Await pathology results. | | | - Resume previous diet. | | | - Follow an antireflux regimen. | | | - Repeat upper endoscopy in 3 years for surveillance based on pathology | | | results. | | | - Return to GI office as previously scheduled. | | |AQUILES RAGLAND MD | | |11/28/2019 10:36:28 AM | | |This report has been signed electronically. | | |Note Initiated On: 11/28/2019 9:48 AM | | |Number of Addenda: 0 | | | [facility] | | + + ----+ + +---------+ + + | Performing | Address | City/State/Zipcode | Phone Number | | Organization | | | | + +---------+ + + | [facility] | | | | + +---------+ + + COLONOSCOPY (11/28/2019 9:47 AM PST) + + | Specimen | + + | | + + + + + | Narrative | Performed At | + + + | [facility] | [facility] | | [facility] CountyologyPatient Name: Naveed Ramirez | [facility] | | MichaelProcedure Date: 11/28/2019 9:47 AMMRN: [id number] | | | Number: [id number] of : 1980Note Status: | | | FinalizedAttending MD: AQUILES RAGLAND , MDProcedure Type: | | | ColonoscopyIndications: Generalized abdominal | | | pain, Change in bowel habitsReferring MD: Kris Nolan | | | MD Abisai (Referring MD), Sowmya | | | RAYNE Carter (Referring MD)Medicines: | | | Monitored Anesthesia CareComplications: No immediate | | | complications.Procedure: Pre-Anesthesia Assessment: - | | | Prior to the procedure, a History and Physical was performed, and | | | patient medications and allergies were reviewed. The patient is | | | competent. The risks and benefits of the procedure and the | | | sedation options and risks were discussed with the patient. All | | | questions were answered and informed consent was obtained. | | | Patient identification and proposed procedure were verified by | | | the physician, the nurse and the anesthesiologist in the | | | pre-procedure area in the procedure room. Mental Status | | | Examination: alert and oriented. Airway Examination: normal | | | oropharyngeal airway and neck mobility. Respiratory Examination: clear | | | to auscultation. CV Examination: normal. Prophylactic | | | Antibiotics: The patient does not require prophylactic | | | antibiotics. Prior Anticoagulants: The patient has taken no | | | previous anticoagulant or antiplatelet agents. ASA Grade | | | Assessment: III - A patient with severe systemic disease. After | | | reviewing the risks and benefits, the patient was deemed in | | | satisfactory condition to undergo the procedure. The anesthesia plan | | | was to use monitored anesthesia care (MAC). Immediately prior | | | to administration of medications, the patient was re-assessed | | | for adequacy to receive sedatives. The heart rate, respiratory | | | rate, oxygen saturations, blood pressure, adequacy of pulmonary | | | ventilation, and response to care were monitored throughout | | | the procedure. The physical status of the patient was | | | re-assessed after the procedure. After I obtained informed | | | consent, the scope was passed under direct vision. Throughout | | | the procedure, the patient's blood pressure, pulse, and oxygen | | | saturations were monitored continuously. The Colonoscope was | | | introduced through the anus and advanced to the terminal ileum. The | | | colonoscopy was performed without difficulty. The patient | | | tolerated the procedure well. The quality of the bowel | | | preparation was evaluated using the BBPS (Cortez Bowel | | | Preparation Scale) with scores of: Right Colon = 1 (portion of | | | mucosa seen, but other areas not well seen due to staining, | | | residual stool and/or opaque liquid), Transverse Colon = 1 | | | (portion of mucosa seen, but other areas not well seen due to | | | staining, residual stool and/or opaque liquid) and Left Colon = | | | 2 (minor amount of residual staining, small fragments of stool | | | and/or opaque liquid, but mucosa seen well). The total BBPS | | | score equals 4. The quality of the bowel preparation was | | | inadequate.Estimated Blood Loss: Estimated blood loss: none.Scope | | | Withdrawal Time: 0 hours 9 minutes 11 seconds Findings: The | | | perianal and digital rectal examinations were normal. The | | | terminal ileum appeared normal. A moderate amount of stool was | | | found in the transverse colon, in the ascending colon and in | | | the cecum, interfering with visualization. It could not be | | | washed off the pereira. Small polyps could have been missed. The | | | sigmoid colon, descending colon, transverse colon, ascending colon | | | and cecum appeared normal. A 2 mm polyp was found in the | | | rectum. The polyp was sessile. The polyp was removed with a | | | cold biopsy forceps. Resection and retrieval were complete. | | | The retroflexed view of the distal rectum and anal verge was normal | | | and showed no anal or rectal abnormalities.Impression: - | | | Preparation of the colon was inadequate for detecting polyps in the | | | right colon, small polyps could have been missed. - The | | | examined portion of the ileum was normal. - Stool in the | | | transverse colon, in the ascending colon and in the cecum. - The | | | sigmoid colon, descending colon, transverse colon, ascending colon | | | and cecum are normal. - One 2 mm polyp in the rectum, | | | removed with a cold biopsy forceps. Resected and retrieved. | | | - The distal rectum and anal verge are normal on retroflexion view. | | | - No endoscopic evidence of inflammatory bowel | | | disease.Recommendation: - The patient will be observed | | | post-procedure, until all discharge criteria are met. - | | | Await pathology results. - Repeat colonoscopy in 5 years if the | | | polyp if an adenoma, if hyperplastic, then repeat at age 51. | | | - Resume regular diet. - See the other procedure note for | | | documentation of additional recommendations.AQUILES RAGLAND | | | 11/28/2019 10:33:06 AMThis report has been signed | | | electronically.Note Initiated On: 11/28/2019 9:47 AMNumber of Addenda: | | | 0 [facility] | | | - Await pathology results. | | | - Repeat colonoscopy in 5 years if the polyp if an adenoma, if | | | hyperplastic, then repeat at age 51. | | | - Resume regular diet. | | | - See the other procedure note for documentation of additional | | | recommendations. | | |AQUILES RAGLAND MD | | |11/28/2019 10:33:06 AM | | |This report has been signed electronically. | | |Note Initiated On: 11/28/2019 9:47 AM | | |Number of Addenda: 0 | | | [facility] | | + + + + +---------+ + + | Performing | Address | City/State/Zipcode | Phone Number | | Organization | | | | + +---------+ + + | [facility] | | | | + +---------+ + + ECG 12 lead (11/28/2019 8:29 AM PST) + + + + + + | Component | Value | Ref Range | Performed | Pathologist | | | | | At | Signature | + + + + + + | VENTRICULAR | 103 | BPM | [facility] | | | RATE EKG | | | | | + + + + + + | ATRIAL RATE | 103 | BPM | [facility] | | + + + + + + | P-R | 156 | ms | [facility] | | | INTERVAL | | | | | + + + + + + | QRS | 98 | ms | [facility] | | | DURATION | | | | | + + + + + + | Q-T | 362 | ms | [facility] | | | INTERVAL | | | | | + + + + + + | Q-T | 474 | ms | [facility] | | | INTERVAL | | | | | | (CORRECTED) | | | | | + + + + + + | P WAVE AXIS | 34 | degrees | [facility] | | + + + + + + | QRS AXIS | 0 | degrees | [facility] | | + + + + + + | T AXIS | 33 | degrees | [facility] | | + + + + + + | INTERPRETAT | Sinus tachycardiaLong | | [facility] | | | ION TEXT | QTcNo previous ECGs | | | | | | availableConfirmed by | | | | | | LEON MCLEOD MD ([id number]) | | | | | | on 11/29/2019 6:06:56 AM | | | | + + + + + + + + | Specimen | + + | | + + + + + | Narrative | Performed At | + + + | | | + + + + +---------+ + + | Performing | Address | City/State/Zipcode | Phone Number | | Organization | | | | + +---------+ + + | [facility] | | | | + +---------+ + + Surgical Pathology Exam (11/28/2019 12:00 AM PST) + + | Specimen | + + | | + + + + + | Narrative | Performed At | + + + | SPECIMEN(S): A ANTRUM/ANTRAL BIOPSY SPECIMEN(S): B DUODENAL BIOPSY | [facility] | | SPECIMEN(S): C ESOPHAGEAL BIOPSY @ 34 SPECIMEN(S): D RECTAL POLYP | [facility] | | SPECIMEN SOURCE: A. ANTRUM/ANTRAL BIOPSY B. DUODENAL BIOPSY C. | | | ESOPHAGEAL BIOPSY @ 34 D. 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 These findings, together with | | | the gross examination, support the pathologic diagnosis. A. A | | | Helicobacter pylori immunostain is performed on (A1) with appropriate | | | positive and negative controls and is negative for organisms. JVR:[facility] | | | FINAL PATHOLOGIC DIAGNOSIS: A. Antrum / antral biopsy: - | | | Focal mild chronic gastritis. - Helicobacter pylori immunostain | | | is negative for organisms. B. Duodenal biopsy: - Benign | | | duodenal mucosa, negative for specific diagnostic abnormality. C. | | | Esophageal biopsy at 34 cm, biopsy: - Squamocolumnar junction with | | | reactive features and mild to moderate mixed inflammation. - | | | Several rare goblet cells identified. (See Comment) D. Rectal | | | polyp, biopsy: - Hyperplastic polyp (one fragment). COMMENT: | | | The presence of several rare goblet cells is of uncertain significance | | | for specialized intestinal metaplasia. Clinical correlation is | | | requested. JVR:[facility]:[id number] GROSS DESCRIPTION: Four specimens are | | | received in four containers, labeled "OF." A. The specimen, | | | labeled "OF, A, gastric biopsy," on the requisition, is received in | | | formalin and consists of four soft wells tissue fragments that vary from | | | 0.1 to 0.7 cm and are submitted in toto in cassette (A1). B. | | | The specimen, labeled "OF, B, duodenal biopsy," on the requisition, is | | | received in formalin and consists of five soft wells red tissue | | | fragments that vary from 0.1-0.3 cm and are submitted in toto in | | | cassette B1. C. The specimen, labeled "OF, C, esophageal | | | biopsy at 34 cm," on the requisition, is received in formalin and | | | consists of two soft pink to red tissue fragments that measure 0.3 and | | | 0.4 cm and are submitted in toto in cassette (C1). D. The | | | specimen, labeled "OF, D, and rectal polyp," on the requisition, is | | | received in formalin and consists of a 0.3 x 0.2 x 0.2 cm, soft, pink, | | | smooth polypoid portion of tissue that is submitted in toto in | | | cassette (D1). SS (under the direct supervision of a pathologist) | | | The Gross Description was prepared using a voice recognition | | | system. The report was reviewed for accuracy; however, sound-alike | | | word errors, addition and/or deletions may occur. If there is any | | | question about this report, please contact Client Services. | | | PERFORMING LABORATORY: The technical component was performed by | | | [facility], [address] [place] [id number] (Medical | | | Director: Candi Barton MD; CLIA# [id number]). Professional | | | interpretation was performed by [facility] | | | [place] [facility], [address] [place] [address] | | | [phone] (Heavy [employer]ic [employer] Equipment: Leon Montiel M.D.). Diagnostician: | | | Leon Montiel MD Pathologist Electronically Signed 11/30/2019 | | | | | + + + + +---------+ + + | Performing | Address | City[facility] | Phone Number | | Organization | | | | + +---------+ + + | [facility] | | | | | [facility] | | | | + +---------+ + + documented in this encounter Visit Diagnoses + + | Diagnosis | + + | Gastroesophageal reflux disease, esophagitis presence not specified | + + | Sedative dependence (HCC) Sedative, hypnotic or anxiolytic dependence, unspecified | + + | Chronic abdominal pain Abdominal pain, unspecified site | + + | Failed conscious sedation during procedure, subsequent encounter | + + | Obstructive sleep apnea Obstructive sleep apnea (adult) (pediatric) | + + | Nonintractable epilepsy without status epilepticus, unspecified epilepsy type (HCC) | + + documented in this encounter Admitting Diagnoses + + | Diagnosis | + + | Gastroesophageal reflux disease, esophagitis presence not specified | + + | Sedative dependence (HCC) Sedative, hypnotic or anxiolytic dependence, unspecified | + + | Chronic abdominal pain Abdominal pain, unspecified site | + + | Failed conscious sedation during procedure, subsequent encounter | + + | Obstructive sleep apnea Obstructive sleep apnea (adult) (pediatric) | + + | Nonintractable epilepsy without status epilepticus, unspecified epilepsy type (HCC) | + + documented in this encounter Administered Medications + +--------+---------+------+------+------+ | Medication Order | MAR | Action | Dose | Rate | Site | | | Action | Date | | | | + +--------+---------+------+------+------+ + +---+ | albuterol 2.5 mg/3 mL nebulizer | | | solution 2.5 mg 2.5 mg, | | | Nebulization, ONCE PRN, Wheezing, | | | Starting 11/28/19 at 1049, | | | For 1 dose, Notify anesthesia if | | | patient is wheezing and does not | | | have a history of asthma or COPD | | | or current smoking., | | | Recovery/Phase I | | + +---+ | | | + +---+ | dextrose 50% injection 12.5-25 | | | g 12.5-25 g, Intravenous, EVERY | | | 15 MIN PRN, Low Blood Sugar, Give | | | 12.5g (25 mL) IV if blood | | | glucose 50-69 mg/dL. Give 25g | | | (50 mL) IV if blood glucose < 50, | | | Starting 11/28/19 at 0807, | | | Repeat in 15 min if blood glucose | | | remains < 70 mg/dL. Repeat | | | blood glucose in 30 min once | | | blood glucose > 70., Pre-op | | + +---+ | | | + +---+ | dextrose 50% injection 12.5-25 | | | g 12.5-25 g, Intravenous, EVERY | | | 15 MIN PRN, Low Blood Sugar, For | | | hypoglycemia. Give 12.5g (25ml) | | | IV if blood glucose 50-69 | | | mg/dL. Give 25g (50ml) IV if | | | blood glucose < 50, Starting Tue | | | 11/28/19 at 1049, Give over 2 min. | | | Repeat in 15 min if blood | | | glucose remains < 70 mg/dL. | | | Repeat blood glucose in 30 min | | | once blood glucose > 70., | | | Recovery/Phase I | | + +---+ | | | + +---+ | fentaNYL (PF) injection 25-50 | | | mcg 25-50 mcg, Intravenous, | | | EVERY 5 MIN PRN, Pain, Initial | | | postop urgent pain or escalating | | | pain, Starting 11/28/19 at | | | 1049, For 4 doses, (2 doses | | | maximum for opioid naive, 4 doses | | | maximum for opioid tolerant) | | | First dose must be lowest dose. | | | Use Pasero Sedation Scale. | | | [Opioid tolerant = One week or | | | longer, onxoot-pnm-wyran use of | | | at least the following DAILY | | | dose: 60mg oral morphine, 60mg | | | oral hydrocodone, 30mg oral | | | oxycodone, 8mg oral | | | hydromorphone, fentanyl patch | | | 25mcg/hr, or equivalent dose of | | | another opioid], Recovery/Phase I | | + +---+ | | | + +---+ + +---------+ +---+---+---+ | lactated ringers (LR) infusion | New Bag | 11/28/19 | | | | | at 100 mL/hr, Intravenous, | | 20 10:29 | | | | | CONTINUOUS, Starting 11/28/19 | | AM PST | | | | | at 0830, Pre-op | | | | | | + +---------+ +---+---+---+ + + +--------+-------+---+ | Continued by Anesthesia [...] | | | | + + +--------+-------+---+ + +---+ | | | + +---+ | lactated ringers (LR) infusion | | | at 10-100 mL/hr, Intravenous, | | | CONTINUOUS, Starting 11/28/19 | | | at 0830, TKO., Pre-op | | + +---+ | | | + +---+ | meperidine (DEMEROL) injection | | | 12.5-25 mg 12.5-25 mg, | | | Intravenous, PRN, Shivering, | | | Starting 11/28/19 at 1049, For | | | 2 doses, May Repeat once in 5 | | | min., Recovery/Phase I | | + +---+ | | | + +---+ | ondansetron (ZOFRAN) injection | | | 4 mg 4 mg, Intravenous, EVERY 4 | | | HOURS PRN, Nausea, Vomiting, | | | Starting 11/28/19 at 1049, | | | Recovery/Phase I | | + +---+ | | | + +---+ documented in this encounter
--- OUTSIDE RECORDS SUMMARY | ~2020-02-08 | XMS | Encounter Summary ---
Demographics + + + | Address | [address] | | | [place] [address] | + + + | Home Phone | | + + + | Preferred Language | Unknown | + + + | Marital Status | Single | + + + | Pentecostalism Affiliation | 1077 | + + + | Race | Unknown | + + + | Ethnic Group | Unknown | + + + Author + + + | Author | [facility] | | | and [place]ol[place] | + + + | Organization | [facility] | | | and Amolana | [...] Team Providers + +------+ + | Care Batter Mixer Helper Name | Role | Phone | + +------+ + | Kris Barone PCP | | + +------+ + Reason for Visit + + + | Reason | Comments | + + + | Gastroesophageal | | | Reflux | | + + + Evaluate & Treat (Routine) +--------+--------+ + + + + | Status | Reason | Specialty | Diagnoses / | Referred By | Referred To | | | | | Procedures | Contact | Contact | +--------+--------+ + + + + | Closed | | Gastroenterol | Diagnoses | [place], | [facility] | | | | ogy | | [facility] | Gastroenterol | | | | | Gastro-esoph | [address] | | | | | ageal reflux | [place], | [address] [place] | | | | | disease | [address] | [address] [place] | | | | | without | [place], | [place], [place] | | | | | esophagitis | [place] [address] | [address] | | | | | | Phone: | Phone: | | | | | | [phone] | [phone] | | | | | | Fax: | Fax: | | | | | | [phone] | [phone] | +--------+--------+ + + + + Encounter Details +--------+---------+ + + + | Date | Type | Department | Care Team | Description | +--------+---------+ + + + | 01/09/ | Office | [facility] [place] | [place], | Gastroesophageal | | 2020 | Visit | GASTROENTEROLOGY | RAYNE Deng [address] | reflux disease, | | | | [address] [place] | [place], [address] | esophagitis presence | | | | [address] [place], [place] | [place], [place] | not specified | | | | [address] | [address] | (Primary Dx); | | | | [phone] | | Sedative dependence | | | | | | (HCC); Chronic | | | | | | abdominal pain; | | | | | | Failed conscious | | | | | | sedation during | | | | | | procedure, | | | | | | subsequent encounter | +--------+---------+ + + + Social History [...] + + + | Blood Pressure | 126/80 | 10/19/2019 10:13 AM | | | | | PST | | + + + + + | Pulse | 116 | 10/19/2019 10:13 AM | | | | | PST | | + + + + + | Temperature | 36.8 C (98.3 F) | 10/19/2019 10:13 AM | | | | | PST | | + + + + + | Respiratory Rate | 14 | 10/19/2019 10:13 AM | | | | | PST | | + + + + + | Oxygen Saturation | 98% | 10/19/2019 10:13 AM | | | | | PST | | + + + + + | Inhaled Oxygen | - | - | | | Concentration | | | | + + + + + | Weight | 101.7 kg (224 lb 3.3 | 10/19/2019 10:13 AM | | | | oz) | PST | | + + + + + | Height | - | - | | + + + + + | Body Mass Index | 37.31 | 08/03/2019 3:24 PM | | | | | PDT | | + + + + + documented in this encounter Patient Instructions Patient Instructions Sowmya Carter ARNP - 10/19/2019 10:00 AM PSTContinue with jeremy couch medications. Recommend either taking omeprazole morning and night or switch to night time dosing. Electr onically signed by RAYNE Rios at 10/19/2019 10:56 AM PST documented in this encounter Progress Notes Sowmya Carter ARNP - 10/19/2019 10:00 AM PSTFormatting of this note might be differe nt from the original. PATIENT NAME: Naveed Ramirez : 1980: AGE: 39 y.o. REFERRED BY: ALEJANDRO Montes PRIMARY CARE: Kris Barone Subjective: CHIEF COMPLAINT: Naveed Ramirez is a 39 y.o. male referred by Kris Barone for evaluation and treatment of GERD. HISTORY OF PRESENT ILLNESS: Patient notes abdominal pain for the past year. Discomfort would initially come after eatin g. He was never been able to figure out which foods trigger pain. He now notes that there is a baseline abdominal discomfort with intermittent "attacks". He states the "attacks" can be an intensified sharp or dull pain. He can have severe pain that can last hours, but he notes the worst "attack" can come about 2 times per week and last for seconds. She feels like there are waves of discomfort that will go up to head and down arms like the "starting of a panic attack." Panic attacks have caused abdominal discomfort. This typicall y causes more of a "butterfly" sensation. He has avoided gluten. This has helped with headaches. Otherwise this has not helped with o ther GI symptoms. Omeprazole has helped with heartburn. However, it has not helped with the other abdominal s ymptoms. He takes ibuprofen about 1-2 times per month. He usually will take ibuprofen 600 mg once on those days. Weakness, tingling in arms and legs. Denies bloating after eating. She has stopped his buspirone. He was unable to sleep and was more anxious. Increase in gas. He reports that he has eructation regularly. Flatulence is less frequent.H e can feel like gas gets stuck in chest area. Denies dysphagia with food or liquids. He notes regular bowel movements. He will rarely have constipation. Denies bloody or black stools. MEDICAL, SURGICAL, AND PERSONAL HISTORY: BP 126/80 | Pulse 116 | Temp 36.8 C (98.3 F) (Temporal) | Resp 14 | Wt 101.7 kg (22 4 lb 3.3 oz) | SpO2 98% | BMI 37.31 kg/m Allergies Allergen Reactions Ritalin [Methylphenidate] Other (See Comments) Reaction: Suicidal ideation Past Medical History: Diagnosis Date Body mass index 38.0-38.9, adult Dysmetabolic syndrome X Epigastric abdominal pain Epilepsy (HCC) Gastritis GERD (gastroesophageal reflux disease) HTN (hypertension) Iron deficiency anemia Nausea Obesity Obstructive sleep apnea Panic anxiety syndrome Recurrent seizures (HCC) Resolved by age 12 Past Surgical History: Procedure Laterality Date SKIN CANCER EXCISION 2018 Basal Cell carcinoma removed from nose TONSILLECTOMY AND ADENOIDECTOMY 2005 UPPER GASTROINTESTINAL ENDOSCOPY 06/13/2019 PO DX: Mild to moderate diffuse gastroduodenitis, Small bilateral hernia. (See full report ). ~Iraj Becker MD [facility] UVULOPALATOPHARYGOPLASTY (UP3) For sleep apnea Family History Problem Relation Age of Onset Diabetes Mother Asthma Mother Hypertension Father Diabetes Father Diabetes Sister Hypertension Paternal Grandfather Diabetes Paternal Grandfather Blindness Paternal Grandfather Partial Diabetes Sister Lung cancer Maternal Grandmother Social History Socioeconomic History Marital status: Single Spouse name: Not on file Number of children: Not on file Years of education: Not on file Highest education level: Not on file Occupational History Not on file Social Needs Financial resource strain: Not on file Food insecurity: Worry: Not on file Inability: Not on file Transportation needs: Medical: Not on file Non-medical: Not on file Tobacco Use Smoking status: Never Smoker Smokeless tobacco: Never Used Substance and Sexual Activity Alcohol use: Never Frequency: Never Drug use: Never Sexual activity: Not on file Comment: Not on file Lifestyle Physical activity: Days per week: Not on file Minutes per session: Not on file Stress: Not on file Relationships Social connections: Talks on phone: Not on file Gets together: Not on file Attends worship service: Not on file Active member of club or organization: Not on file Attends meetings of clubs or organizations: Not on file Relationship status: Not on file Intimate partner violence: Fear of current or ex partner: Not on file Emotionally abused: Not on file Physically abused: Not on file Forced sexual activity: Not on file Other Topics Concern Not on file Social History Narrative Not on file Review of Systems Constitutional: Positive for fever. Negative for diaphoresis, fatigue and unexpected weight change. HENT: Negative for congestion, hearing loss, mouth sores, rhinorrhea and trouble swallowing . Eyes: Negative for redness and visual disturbance. Respiratory: Negative for cough, choking, chest tightness, shortness of breath and wheezing . Cardiovascular: Positive for chest pain. Negative for palpitations and leg swelling. Gastrointestinal: Positive for abdominal pain. Negative for abdominal distention, anal blee ding, blood in stool, constipation, diarrhea, nausea, rectal pain and vomiting. Complains of heartburn Endocrine: Denies enlarged thyroid Genitourinary: Negative for dysuria, flank pain and frequency. Musculoskeletal: Negative for arthralgias, back pain and joint swelling. Skin: Negative for color change and rash. Neurological: Positive for numbness and headaches. Negative for seizures, syncope and weakn ess. Hematological: Does not bruise/bleed easily. Denies anemia or enlarged lymph glands. Psychiatric/Behavioral: Positive for dysphoric mood. The patient is nervous/anxious. Objective: Physical Exam Vitals signs and nursing note reviewed. Constitutional: Appearance: Normal appearance. He is well-developed. HENT: Head: Normocephalic and atraumatic. Eyes: General: No scleral icterus. Neck: Musculoskeletal: Normal range of motion and neck supple. Cardiovascular: Rate and Rhythm: Normal rate and regular rhythm. Heart sounds: Normal heart sounds. Pulmonary: Effort: Pulmonary effort is normal. No respiratory distress. Breath sounds: Normal breath sounds. No wheezing. Abdominal: General: Bowel sounds are normal. Palpations: Abdomen is soft. Abdomen is not rigid. There is no hepatomegaly, splenomegal y or mass. Tenderness: There is no tenderness. There is no guarding or rebound. Negative signs incl ude Severino's sign. Musculoskeletal: Normal range of motion. General: No deformity. Skin: General: Skin is warm and dry. Findings: No rash. Neurological: Mental Status: He is alert and oriented to person, place, and time. Psychiatric: Behavior: Behavior normal. No visits with results within 1 Month(s) from this visit. Latest known visit with results is: No results found for any previous visit. Assessment: 1. Gastroesophageal reflux disease, esophagitis presence not specified 2. Sedative dependence (HCC) 3. Chronic abdominal pain Plan: Patient to have EGD for further evaluation.The procedural techniques, risks, indications, a nd alternatives were discussed. Among the risks, are perforation, bleeding, infection, era rgic/adverse reactions to medications, and cardiovascular complications. Each of these coul d result in hospitalization, additional procedures (including surgery), or other life threat ening complications. Patient verbalized understanding.Patient to call with any questions or concerns prior to procedure. Recommend procedure with anesthesia due to prescription for Xanax. Continue with current medications. Recommend either taking omeprazole morning and night or switch to night time dosing. Previous EGD required versed 9 mg in addition to Fentanyl 100 mg for sedation. Will follow up with results. Patient is to call with any question or concerns. Any fevers, chills, chest pain, SOB or other serious symptoms patient is to call the office or go to ER . CC: Kris Barone This note was dictated using voice recognition software. Please contact me if there are an y questions regarding its content.Electronically signed by RAYNE Rios at 10/20 1:23 PM PSTdocumented in this encounter Plan of Treatment Not on filedocumented as of this encounter Procedures + +--------+ + + + | Procedure Name | Priori | Date/Time | Associated Diagnosis | Comments | | | ty | | | | + +--------+ + + + | IMAGING REPORT - | | 09/21/2019 | | Results for this | | EXTERNAL SCAN | | 12:00 AM | | procedure are in the | | | | PST | | results section. | + +--------+ + + + | PATHOLOGY - EXTERNAL | | 06/13/2019 | | Results for this | | SCAN | | 12:00 AM | | procedure are in the | | | | PDT | | results section. | + +--------+ + + + | DIAGNOSTIC REPORT - | | 06/13/2019 | | Results for this | | EXTERNAL SCAN | | 12:00 AM | | procedure are in the | | | | PDT | | results section. | + +--------+ + + + documented in this encounter Results IMAGING REPORT - EXTERNAL SCAN (09/21/2019 12:00 AM PST) + + + | Narrative | Performed At | + + + | Ordered by an | | | unspecified provider. | | + + + DIAGNOSTIC REPORT - EXTERNAL SCAN (06/13/2019 12:00 AM PDT) + + + | Narrative | Performed At | + + + | Ordered by an | | | unspecified provider. | | + + + PATHOLOGY - EXTERNAL SCAN (06/13/2019 12:00 AM PDT) + + + | Narrative | Performed At | + + + | Ordered by an | | | unspecified provider. | | + + + documented in this encounter Visit Diagnoses + + | Diagnosis | + + | Gastroesophageal reflux disease, esophagitis presence not specified - Primary | + + | Sedative dependence (HCC) Sedative, hypnotic or anxiolytic dependence, unspecified | + + | Chronic abdominal pain Abdominal pain, unspecified site | + + | Failed conscious sedation during procedure, subsequent encounter | + + documented in this encounter
--- OUTSIDE RECORDS SUMMARY | ~2020-02-08 | XMS | Encounter Summary ---
Demographics + + + | Address | [address] | | | [place] [address] | + + + | Home Phone | | + + + | Preferred Language | Unknown | + + + | Marital Status | Single | + + + | Denominational Affiliation | 1077 | + + + | Race | Unknown | + + + | Ethnic Group | Unknown | + + + Author + + + | Author | [facility] | | | and [place] | + + + | Organization | [facility] | | | and [place]olana [...] Team Providers + +------+ + | Care Disc Sander Name | Role | Phone | + +------+ + PCP | Unavailable | + +------+ + Encounter Details +--------+ + + + + | Date | Type | Department | Care Team | Description | +--------+ + + + + | 10/10/ | Abstract | [facility] | [place], | | | 2018 | | GASTROENTEROLOGY | MD Jammie [address] | | | | | [address] | [place] | | | | | [address] [place] | [place] [address] | | | | | [address] | | | | | | [phone] | | | +--------+ + + + [...] + + + | Blood Pressure | - | - | | + + + + + | Pulse | - | - | | + + + + + | Temperature | - | - | | + + + + + | Respiratory Rate | - | - | | + + + + + | Oxygen Saturation | - | - | | + + + + + | Inhaled Oxygen | - | - | | | Concentration | | | | + + + + + | Weight | 104.4 kg (230 lb 1.6 | 08/03/2019 3:24 PM | | | | oz) | PDT | | + + + + + | Height | 165.1 cm (5' 5") | 08/03/2019 3:24 PM | | | | | PDT | | + + + + + | Body Mass Index | 38.29 | 08/03/2019 3:24 PM | | | | | PDT | | + + + + + documented in this encounter Plan of Treatment Not on filedocumented as of this encounter Visit Diagnoses Not on filedocumented in this encounter
--- OUTSIDE RECORDS SUMMARY | ~2020-02-08 | XMS | Encounter Summary ---
Demographics + + + | Address | [address] | | | [place] [address] | + + + | Home Phone | | + + + | Preferred Language | Unknown | + + + | Marital Status | Single | + + + | Methodist Affiliation | 1077 | + + + | Race | Unknown | + + + | Ethnic Group | Unknown | + + + Author + + + | Author | [facility] | | | and [place] | + + + | Organization | [facility] | | | and [...] Team Providers + +------+ + | Care Shipping And Receiving Assistant Name | Role | Phone | + +------+ + | Kris Barone PCP | | + +------+ + Reason for Visit + + + | Reason | Comments | + + + | Procedure | egd/colon | + + + Encounter Details +--------+ + + + + | Date | Type | Department | Care Team | Description | +--------+ + + + + | 10/23/ | Telephone | [facility] [place] | [facility] | Procedure | | 2019 | | GASTROENTEROLOGY | MD Darrin [address] | (egd/colon) | | | | [address] [place] | [address] [place] | | | | | [address] [place], [place] | [place] [address] | | | | | [address] | [phone] | | | | | [phone] | | | +--------+ + + + [...] filedocumented as of this encounter Visit Diagnoses + + | [...] (HCC) | + + documented in this encounter"
--- OUTSIDE RECORDS SUMMARY | ~2020-02-08 | XMS | Encounter Summary ---
Demographics + + + | Address | [address] | | | [place] [address] | + + + | Home Phone | | + + + | Preferred Language | Unknown | + + + | Marital Status | Single | + + + | Jainism Affiliation | Unknown | + + + [...] Team Providers + +------+ + | Care Steam Flattener Name | Role | Phone | + +------+ + PCP | Unavailable | + +------+ + Encounter Details +--------+ + + + + | Date | Type | Department | Care Team | Description | +--------+ + + + + | 11/30/ | Lab | Dermatopathology | Otoniel Lyons V, | | | 2017 | Requisition | [address] | [place] | | | | | Mailcode: [id number] | Clinic Dermatology | | | | | [facility] | [address] | | | | | and Healing, | [place] | | | | | [facility] | [id number] | | | | | Floor [place], [place] | | | | | | [address] | | | | | | [phone] | | | +--------+ + + + [...] papular | | | | | | solfc-evmws-lvtts skin, | | | | | | [...] + + + + | [facility] | Jennifer [address] | [place] [address] | | | DERMATOPATHOLOGY | [address] | | | + + + + + documented in this encounter Visit Diagnoses + + | Diagnosis | + + | Neoplasm of uncertain behavior of skin | + + documented in this encounter
--- OUTSIDE RECORDS SUMMARY | ~2020-02-08 | XMS | Encounter Summary ---
Demographics + + + | Address | [address] | | | [place] [address] | + + + | Home Phone | | + + + | Preferred Language | Unknown | + + + | Marital Status | Single | + + + | Pentecostal Affiliation | 1077 | + + + | Race | Unknown | + + + | Ethnic Group | Unknown | + + + Author + + + | Author | [facility] | | | and [place] | + + + | Organization | [facility] | | | and [place] [...] Team Providers + +------+ + | Care Revenue Manager Name | Role | Phone | + +------+ + PCP | Unavailable | + +------+ + Encounter Details +--------+ + + + + | Date | Type | Department | Care Team | Description | +--------+ + + + + | 11/24/ | Hospital | [facility] | Sam Enciso | | | 2006 | Encounter | MED CTR SLEEP | MD Jorgito [address] | | | | | CENTER [address] | [facility] | | | | | [place] | [place] [address] | | | | | [address] | [phone] | | | | | [phone] | | | +--------+ + + + [...]
--- OUTSIDE RECORDS SUMMARY | ~2020-02-08 | XMS | Clinical Summary ---
Demographics + + + | Address | [address] | | | [place] [address] | + + + | Home Phone | | + + + | Preferred Language | Unknown | + + + | Marital Status | Single | + + + | Druze Affiliation | Unknown | + + + | Race | Unknown | + + + | Ethnic Group | Other Race | + + + Author + + + | Author | [facility] | + + + | Organization | [facility] | + + + | Address | Unknown | + + + | Phone | Unavailable | + + + Care Team Providers + +------+ + | Care Information Assurance Engineer Name | Role | Phone | + +------+ + PCP | Unavailable | + +------+ + Source Comments BESS is fully live on both [facility] and [facility]Patient.[facility] Allergies Not on File Medications Not on [...] | + + + + + | Influenza (Flu) | | | | | vaccination (#1) | 9 | | | + + + + + | Pneumococcal | Aged Out | | No longer eligible | | vaccination | | | based on patient's | | | | | age to complete this | | | | | topic | + + + + + Results Not on filefrom Last 3 Months [...] | HMA/RG | [id number] | 11/11/19 | [phone] | [address] | PPO | | SHIELD | A | x | 18-Pre | 8 | [address] [address] | | | | | | sent | | [place], | | | | | | | | [place] | | | | | | | | [address] | | + +--------+ +--------+ + +------+ + +--------+ +--------+ + + | Guarantor Name | Accoun | Relation to | Date | Phone | Billing Address | | | t Type | Patient | of | | | | | | | | | | + +--------+ +--------+ + + | Naveed Ramirez | Person | Self | [birth year] | [address] | | | al/Pablo | | 1980 | [phone] | [place] [address] | | | sandy | | | 7 (Home) | | | | | | | [phone] | | | | | | | 7 (Work) | | + +--------+ +--------+ + +"
--- OUTSIDE RECORDS SUMMARY | ~2020-02-08 | XMS | Clinical Summary ---
Demographics + + + | Address | [address] | | | [place] [address] | + + + | Home Phone | | + + + | Preferred Language | Unknown | + + + | Marital Status | Single | + + + | Shinto Affiliation | 1077 | + + + | Race | Unknown | + + + | Ethnic Group | Unknown | + + + Author + + + | Author | [facility] | | | and [place]ana | + + + | Organization | [facility] | | | and Amolana | [...] Team Providers + +------+ + | Care Parts Consultant Name | Role | Phone | + +------+ + | Kris Barone PCP | | + +------+ + Allergies + + + + + + | Active Allergy | Reactions | Severity | Noted | Comments | | | | | Date | | + + + + + + | Latex | Rash | Low | 11/27/19 | When wearing | | | | | 20 | powdered gloves | + + + + + + | Methylphenidate | Other (See Comments) | Medium | 10/10/20 | Suicidal ideation | | | | | 19 | | + + + + + + Medications + + + +---------+------+------+-------+ | Medication | Sig | Dispensed | Refills | Star | End | Statu | | | | | | t | Date | s | | | | | | Date | | | + + + +---------+------+------+-------+ | Multiple | Take 1 tablet by | | 0 | | | Activ | | Vitamins-Minerals | mouth Daily. | | | | | e | | (CENTRUM MEN) TABS | | | | | | | + + + +---------+------+------+-------+ | cholecalciferol | Take 50 mcg by mouth | | 0 | | | Activ | | (EQL VITAMIN D3) 50 | Daily. | | | | | e | | mcg (2,000 units) | | | | | | | | capsule | | | | | | | + + + +---------+------+------+-------+ | | Take 1 tablet by | | 0 | | | Activ | | lisinopril-hydrochlo | mouth Daily. | | | | | e | | rothiazide | | | | | | | | (PRINZIDE,ZESTORETIC | | | | | | | | ) 20-25 MG per | | | | | | | | tablet | | | | | | | + + + +---------+------+------+-------+ | Iron-Vitamin C | Take 1 tablet by | | 0 | | | Activ | | (VITRON-C) 65-125 MG | mouth Daily. | | | | | e | | TABS | | | | | | | + + + +---------+------+------+-------+ | ALPRAZolam (XANAX) | Take 0.5 mg by mouth | | 0 | | | Activ | | 0.5 mg tablet | 3 times daily as | | | | | e | | | needed for Anxiety. | | | | | | + + + +---------+------+------+-------+ | ondansetron | Take 4 mg by mouth | | 0 | | | Activ | | (ZOFRAN ODT) 4 mg | every 8 hours as | | | | | e | | disintegrating | needed for Nausea. | | | | | | | tablet | | | | | | | + + + +---------+------+------+-------+ | omeprazole | TAKE 1 CAPSULE BY | | 0 | 06/0 | | Activ | | (PRILOSEC) 20 mg | MOUTH TWICE DAILY | | | 3/20 | | e | | TBEC | | | | 19 | | | + + + +---------+------+------+-------+ | amitriptyline | TAKE 1 TABLET BY | | 0 | 01/2 | | Activ | | (ELAVIL) 10 mg | MOUTH EVERY DAY AT | | | 2/20 | | e | | tablet | BEDTIME | | | 20 | | | + + + +---------+------+------+-------+ | psyllium (KONSYL) | Take 1 packet by | | 0 | | | Activ | | 28.3 % PACK | mouth Daily. | | | | | e | + + + +---------+------+------+-------+ Active Problems + + + | Problem | Noted Date | + + + | Gastroesophageal reflux disease, esophagitis presence not | 11/09/2019 | | specified | | + + + + + | Overview: Added automatically from request for surgery | | [id number] | + + + + + | Sedative dependence | 11/09/2019 | + + + + + | Overview: Added automatically from request for surgery | | [id number] | + + + + + | Chronic abdominal pain | 11/09/2019 | + + + + + | Overview: Added automatically from request for surgery | | [id number] | + + + + + | Failed conscious sedation during procedure, subsequent encounter | 11/09/2019 | + + + + + | Overview: Added automatically from request for surgery | | [id number] | + + + + + | Obstructive sleep apnea | 11/09/2019 | + + + + + | Overview: Added automatically from request for surgery | | [id number] | + + + + + | Nonintractable epilepsy without status epilepticus, unspecified | 11/09/2019 | | epilepsy type | | + + + + + | Overview: Added automatically from request for surgery | | [id number] | + + Encounters +--------+ + + + + | Date | Type | Specialty | Care Team | Description | +--------+ + + + + | 11/28/ | Anesthesia | | Blaine Barone | | | 2019 | Event | | MD Albin | | +--------+ + + + + | 11/28/ | Surgery | | Aquiles Ragland | EGD | | 2020 | | | MD Darrin | | +--------+ + + + + | 11/28/ | Hospital | | Aquiles Ragland | Gastroesophageal | | 2019 | Encounter | | MD Darrin | reflux disease, | | | | | | esophagitis presence | | | | | | not specified; | | | | | | Sedative dependence | | | | | | ([facility]); Chronic | | | | | | abdominal pain; | | | | | | Failed conscious | | | | | | sedation during | | | | | | procedure, | | | | | | subsequent | | | | | | encounter; | | | | | | Obstructive sleep | | | | | | apnea; | | | | | | Nonintractable | | | | | | epilepsy without | | | | | | status epilepticus, | | | | | | unspecified epilepsy | | | | | | type ([facility]); Change | | | | | | in bowel function; | | | | | | Bloating | +--------+ + + + + from Last 3 Months Family History + + +------+ + | Medical History | Relation | Name | Comments | + + +------+ + | Diabetes | Father | | | + + +------+ + | Hypertension | Father | | | + + +------+ + | Lung cancer | Maternal | | | | | Grandmoth | | | | | er | | | + + +------+ + | Asthma | Mother | | | + + +------+ + | Diabetes | Mother | | | + + +------+ + | Blindness | Paternal | | Partial | | | Grandfath | | | | | er | | | + + +------+ + | Diabetes | Paternal | | | | | Grandfath | | | | | er | | | + + +------+ + | Hypertension | Paternal | | | | | Grandfath | | | | | er | | | + + +------+ + | Diabetes | Sister | | | + + +------+ + | Diabetes | Sister | | | + + +------+ + + +------+--------+ + | Relation | Name | Status | Comments | + +------+--------+ + | Father | | Alive | | + +------+--------+ + | Maternal Grandmother | | | | + +------+--------+ + | Mother | | Alive | | + +------+--------+ + | Paternal Grandfather | | | | + +------+--------+ + | Sister | | | | + +------+--------+ + | Sister | | | | + +------+--------+ + Social History + +-------+ +--------+------+ | [...] | + + Last Filed Vital Signs + + + [...] | | + + + + + Plan of Treatment + + + + + | Health Maintenance | Due Date | Last Done | Comments | + + + + + | Vaccine: Influenza | | 06/27/2018, 09/28/2009 | | | (Season Ended) | 0 | | | + + + + + | Vaccine: | | 02/27/2012, 04/09/1993, | | | Dtap/Tdap/Td (6 - | 2 | 06/09/1986, Additional history | | | Td) | | exists | | + + + + + Procedures + +--------+ + + + | [...] dependence | | | | | | ([facility]) Chronic | | | | | [...] dependence | | | | | | ([facility]) Chronic | | | | | [...] | | | | | | type ([facility]) | | + +--------+ + + + | *TERMED* ID UPPER GI | Routin | 11/28/2019 | | Results for this | | ENDOSCOPY,EXAM | e | 9:48 AM | | procedure are in the | | | | PST | | results section. | + +--------+ + + + | ID COLONOSCOPY FLX | Routin | 11/28/2019 | [...] section. | + +--------+ + + + from Last 3 Months Results EGD (11/28/2019 9:48 AM PST) + + | Specimen | + + | | + + + + ----+ | Narrative | Performed At | + + ----+ | [facility] | [facility] | | [facility] HospitalGastro[facility]ologyPatient Name: Naveed Ramirez | ADOLFO | | MichaelProcedure Date: 11/28/2019 9:48 AMMRN: [id number] | | | Number: [id number] of : 1980Note Status: | | | FinalizedAttending MD: AQUILES RAGLAND , MDProcedure Type: | | | Upper GI endoscopyIndications: [...] | | middle third of esophagus. - [place]-colored mucosa suspicious | | | for short-segment [...] AMNumber | | | of Addenda: 0 [facility] | | | - Normal duodenal bulb [...] |Number of Addenda: 0 | | | [facility] | | + + ----+ + +---------+ [...] + + + | [facility] | [facility] | | Medical CenterGastroenterologyPatient Name: Naveed Ramirez | ADOLFO | | NelsonProcedure Date: 11/28/2019 9:47 AMMRN: [id number] | | | Number: [id number] of : 1980Note Status: | | | FinalizedAttending MD: AQUILES RAGLAND MDProcedure Type: | | | ColonoscopyIndications: Generalized [...] | preparation was evaluated using the BBPS ([place] Bowel | | | Preparation Scale) with [...] AMNumber of Addenda: | | | 0 [facility] | | | - Await pathology results. [...] |Number of Addenda: 0 | | | [facility] | | + + + + +---------+ + + | Performing | Address | City/State/[facility] | Phone Number | | Organization | [...] | | | | LEON MCLEOD MD ([id number]) | | | | | | on [...] negative controls and is negative for organisms. JVR:[facility] [place] | | | FINAL PATHOLOGIC [...] Clinical correlation is | | | requested. JVR:[facility] [place] [place]:C2NR GROSS DESCRIPTION: Four specimens are [...] component was performed by | | | [facility] [address] (Medical | | | Director: Candi Barton MD; IA# [id number]). Professional | | | [facility] | | | [address] | | | [address] (Boring Machine Operator Horizontal: Leon Montiel M.D.). Diagnostician: | | | Leon Montiel MD Pathologist Electronically Signed 11/30/2019 | | | | | + + + + +---------+ + + | Performing | Address | City/State/Zipcode | Phone Number | | Organization | | | | + +---------+ + + | [facility] | | | | | [facility] | | | | + +---------+ + + from Last 3 Months Insurance +---------+--------+ +--------+ +---------+------+ | Payer | Benefi | Subscriber | Effect | Phone | Address | Type | | | t Plan | ID | myra | | | | | | / | | Dates | | | | | | Group | | | | | | +---------+--------+ +--------+ +---------+------+ | [employer] | REGEN | [id number] | 11/11/19 | [phone] | | PPO | | | E BCBS | 5 | 18-Pre | 8 | | | | | GROUP | | sent | | | | | | ADMIN | | | | | | +---------+--------+ +--------+ +---------+------+ + +--------+ +--------+ + + | Guarantor Name | Accoun | Relation to | Date | Phone | Billing Address | | | t Type | Patient | of | | | | | | | | | | + +--------+ +--------+ + + | Naveed Ramirez | Person | Self | [birth year] | [address] | | [place] | al/Fam | | 1980 | [phone] | [place] [address] | | | [place] | | | 7 (Home) | | + +--------+ +--------+ + + Advance Directives + + + + + | Type | Date Recorded | Patient | Explanation | | | | Preservationist | | + + + + + | Power of | | | | | Natural Resources Specialist | | | | + + + + + | Advance | 11/28/2019 7:46 | | | | Directive | AM | | | + + + + +
--- OUTSIDE RECORDS SUMMARY | ~2020-02-08 | XMS | Encounter Summary ---
Demographics + + + | Address | [address] | | | [place] [address] | + + + | Home Phone | | + + + | Preferred Language | Unknown | + + + | Marital Status | Single | + + + | Confucianist Affiliation | 1077 | + + + | Race | Unknown | + + + | Ethnic Group | Unknown | + + + Author + + + | Author | [facility] | | | and Amolana | + + + | Organization | [facility] | | | and Amolana [...] Team Providers + +------+ + | Care Bench Mechanic Name | Role | Phone | + [...] | | | esophagitis | | [place] [address] | | | | | presence not | | Phone: | | | | | specified | | [phone] | | | | | 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 | | [phone] | | | | | (HCC) | [...] | | | | | | | ND | | | | | | | ESOPHAGOGAST | | | | | | | RODUODENOSCO | | | | | | | PY TRANSORAL | | | | | | | DIAGNOSTIC | | | | | | | ND EGD | | | | | | | TRANSORAL | | | | | | | BIOPSY | | | | | | | SINGLE/MULTI | | | | | | | PLE ND | | | | | | | COLONOSCOPY | | | | | | | FLX DX | | | | | | | W/COLLJ SPEC | | | | | | | WHEN PFRMD | | | | | | | ND | | | | | | | COLONOSCOPY | | | | | | | W/BIOPSY | | | | | | | SINGLE/MULTI | | | | | | | PLE ND | | | | | | | COLSC FLX | | | | | | | W/RMVL OF | | | | | | | TUMOR POLYP | | | | | | | LESION SNARE | | | | | | | TQ ND | | | | | | | [...] + + | 11/28/ | Hospital | [facility] | Aquiles Ragland | Gastroesophageal | | 2020 | Encounter | [facility] | MD Darrin [address] | reflux disease, | | | | [address] | [facility] | esophagitis presence | | | | [place], [place] | [place] [address] | not specified; | | | | [address] | [phone] | Sedative dependence | | | | [phone] | | ([facility]); Chronic | | | | | [...] | | | | | | type (HCC); Change | | | | | | in bowel function; | | | | | | Bloating | +--------+ + + + + Social [...] You can't be awakened Date Last Reviewed: 07/28/[id number] [employer]. [address] [place] [address], [place] [address]. All righ ts reserved. This information is [...] dependence | | | | | | ([facility]) Chronic | | | | | [...] | | | | | | type ([facility]) | | + +--------+ + + + | EGD | | 11/28/2019 | Gastroesophageal | | | | | 9:55 AM | reflux disease, | | | | | PST | esophagitis presence | | | | | | not specified | | | | | | Sedative dependence | | | | | | ([facility]) Chronic | | | | | [...] + +--------+ + + + | *TERMED* ND UPPER GI | Routin | 11/28/2019 | | Results for this | | ENDOSCOPY,EXAM | e | 9:48 AM | | procedure are in the | | | | PST | | results section. | + +--------+ + + + | ND COLONOSCOPY FLX | Routin | 11/28/2019 | [...] Performed At | + + ----+ | [facility] | [facility] | | [facility]ologyPatient Name: Naveed Ramirez | ADOLFO | | NelsonProcedure Date: 11/28/2019 9:48 AMMRN: [id number] | | | Number: [id number] of : 1980Note Status: | | | FinalizedAttending MD: AQUILES RAGLAND MDProcedure Type: | | | Upper GI [...] | | middle third of esophagus. - [place]-colored mucosa suspicious | | | for short-segment [...] AMNumber | | | of Addenda: 0 [facility] | | | - Normal duodenal [...] |Number of Addenda: 0 | | | [facility] | | + + ----+ + +---------+ + + | Performing | Address | City/State/[facility]code | Phone Number | | Organization | | | | + +---------+ + + | [facility] | | | | + +---------+ + + COLONOSCOPY (11/28/2019 9:47 AM PST) + + | Specimen | + + | | + + + + + | Narrative | Performed At | + + + | [facility] | [facility] | | [facility] HospitalGaroenterologyPatient Name: Naveed Ramirez | PROVJAMES | | MichaelProcedure Date: 11/28/2019 9:47 AMMRN: [id number] | | | Number: [id number] of : 1980Note Status: | | | FinalizedAttending MD: AQUILES RAGLAND , [facility]PITALrocedure Type: | | | ColonoscopyIndications: Generalized abdominal [...] | preparation was evaluated using the BBPS ([place] Bowel | | | Preparation Scale) with [...] AMNumber of Addenda: | | | 0 [facility] | | | - Await pathology [...] |Number of Addenda: 0 | | | [facility] | | + + + + [...] | | | | LEON MCLEOD MD ([id number]) | | | | | | on [...] negative controls and is negative for organisms. JVR:[facility] | | | FINAL PATHOLOGIC DIAGNOSIS: A. [...] Clinical correlation is | | | requested. JVR:[facility]:C2NR GROSS DESCRIPTION: Four specimens are | | [...] component was performed by | | | [facility] [address] (Medical | | | Director: Candi Barton MD; IA# [id number]). Professional | | | [facility] by [facility] | | | [address] | | | [address] (Piccoloist: Leon Montiel M.D.). Diagnostician: | | | Leon Montiel MD Pathologist Electronically Signed 11/30/2019 | | | | | + + + + +---------+ + + | Performing | Address | City/State/[facility]code | Phone Number | | Organization | [...] unspecified epilepsy type (HCC) | + + | Change in bowel function Other symptoms involving digestive system | + + | Bloating Flatulence, eructation, and gas pain | + + documented in this encounter [...] One week or | | | longer, rnhpmf-hda-frvwi use of | | | at least [...]
[~2020-02-08 15:44] MED LIST changes: +DOXEPIN HCL10 MG PO
--- OUTSIDE RECORDS SUMMARY | 2020-02-08 15:46 | XMS ---
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 No recent Security Events currently on file CRITERIA MET - [facility] - Has Care Guidelines - [facility] - 2 Visits in 30 Days CARE PROVIDERS [facility] 01/24/2020-Current PHONE: [phone] Guidelines Source: [facility] Guidelines Date: 09/01/2019 Care Coordination: Receives mental health services with [employer].\T\nbsp; Please contact [employer] for any mental health concerns.\T\nbsp; [place]: [phone]\ T\nbsp; [place]: [phone]. E.D. VISIT COUNT (12 MO.) 3 [facility] TOTAL 3 NOTE: Visits indicate total known visits. 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 [place] TYPE: Emergency COMPLAINT: - PANIC ATTACK/BLOOD PRESSURE CONCERN DIAGNOSES: - Latex allergy status - Other residential (current) drug therapy - Paresthesia of skin - Gastro-esophageal reflux disease without esophagitis - Allergy status to other drugs, medicaments and biological sub - Essential (primary) hypertension INPATIENT VISIT TRACKING (12 MO.) No inpatient visits to display in this time frame [email or web address]
== END 2020-02-08 15:57 | disposition home or self-care (01) ==
LOC: ED 15:44
DX: R10.9 Unspecified abdominal pain (principal)

== ENCOUNTER 2020-09-18 14:34 | Emergency (ER) | payer OTHER ==
[~2020-09-18] VITALS: Ht 162.6 cm; Wt 108.9 kg
--- OUTSIDE RECORDS SUMMARY | 2020-09-18 14:38 | XMS ---
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 E.D. VISIT COUNT (12 MO.) 3 HOLLY Samuels TOTAL 3 NOTE: Visits indicate total known visits. 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
[2020-09-18] MEDS ORDERED: VENLAFAXINE H37.5 M1 PO (14:44)
--- NOTE | 2020-09-19 21:32 | EKG ---
[facility] [address] [facility] [place], [place] [address] Signed Sinus tachycardia Otherwise normal ECG Confirmed by VENUS AJ MD ([id number]) on 09/19/2020 9:32:20 PM Electronically Signed By: VENUS AJ MD 09/19/202131 PATIENT NAME: RADHA AMIN YADIRA Electrocardiogram DATE OF : 82 PHYSICIAN: VENUS AJ MD REPORT #: [id number] REPORT IS CONFIDENTIAL AND NOT TO BE RELEASED WITHOUT AUTHORIZATION
== END 2020-09-18 17:50 | disposition home or self-care (01) ==
LOC: ED 14:34
DX: R07.2 Precordial pain (principal); I10 Essential (primary) hypertension; Z91.040 Latex allergy status; Z88.8 Allergy status to other drugs, medicaments and biological substances; K21.9 Gastro-esophageal reflux disease without esophagitis; Z79.899 Other long term (current) drug therapy
CPT/HCPCS: 71045; 80053; 83735; 84484; 85025; 93005; 93010; 99285-25